=== PATIENT | male | born 1995 | race Caucasian/White ===

== ENCOUNTER 2019-07-09 02:08 | Emergency (ER) | payer SELFPAY ==
[~2019-07-09] VITALS: Ht 172.7 cm; Wt 105.0 kg
[2019-07-09] MEDS ORDERED: IBUPROFEN 600MG TABLET PO STA (04:59)
[2019-07-09 05:46] VITALS: BP 139/79
== END 2019-07-09 05:50 | disposition home or self-care (01) ==
LOC: ER 02:08
DX: S29.012A Strain of muscle and tendon of back wall of thorax, initial encounter (principal); M62.830 Muscle spasm of back; V43.02XA Car driver injured in collision with other type car in nontraffic accident, initial encounter; Y93.89 Activity, other specified; Y92.488 Other paved roadways as the place of occurrence of the external cause; R03.0 Elevated blood-pressure reading, without diagnosis of hypertension
CPT/HCPCS: 99282